=== PATIENT | female | born 2000 | race Caucasian/White ===

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

== ENCOUNTER 2019-02-15 23:35 | Inpatient (IN) ==
[2019-02-16] MEDS ORDERED: DEMEROL IV ONE (02:55)
[2019-02-16] MEDS ORDERED: ZOFRAN IV ONE (02:55)
[2019-02-16] MEDS ORDERED: DEMEROL ONE (04:15)
[2019-02-16] MEDS ORDERED: ZOFRAN ONE (04:15)
[2019-02-16 04:55] LABS: BILIRUBIN URINE SMALL (NEGATIVE); BLOOD URINE MODERATE (NEGATIVE); COLOR YELLOW; GLUCOSE URINE NEGATIVE (NEGATIVE); KETONE URINE NEGATIVE (NEGATIVE); LEUKOCYTES URINE MODERATE (NEGATIVE); NITRITE URINE NEGATIVE (NEGATIVE); PH URINE 5.5; PROTEIN URINE TRACE mg/dL (NEGATIVE); SP GRAVITY URINE 1.012; TURBIDITY URINE HAZY (CLEAR); URINE SOURCE CLEAN CATCH; UROBILINOGEN URINE NORMAL (NORMAL)
[2019-02-16 05:38] LABS: UR EPITHELIAL CELLS <10 /HPF (<10); URINE BACTERIA NEGATIVE /HPF; URINE RBC TNTC /HPF (<10)
[2019-02-16 05:38] LABS: BASO# 0.02 X1000 (0.0-0.2); BASO% 0.1 % (0.0-0.8); EOS# 0.19 X1000 (0.0-0.7); EOS% 1.4 % (0.0-10.0); HEMATOCRIT 36.1 % (37.0-47.0); HEMOGLOBIN 10.5 g/dL (12.0-16.0); IMM GRAN# 0.04 X1000 (0.0-0.04); IMM GRAN% 0.3 % (0.0-0.5); LYMPH# 2.85 X1000 (1.2-3.4); LYMPH% 20.9 % (20.5-51.1); MCH 19.4 PG (27-31); MCHC 29.1 g/dL (33-37); MCV 66.7 FL (81-99); MONO# 0.75 X1000 (0.11-0.59); MONO% 5.5 % (1.7-9.3); MPV 11.6 FL (7.4-10.4); NEUT# 9.76 X1000 (1.4-6.5); NEUT% 71.8 % (42.2-75.2); PLT 431 X1000 (130-400); RBC 5.41 XMIL (4.2-5.4); RDW 17.4 % (11.5-14.5); WBC 13.61 X1000 (4.8-10.8)
[2019-02-16 05:45] LABS: URINE CASTS NONE SEEN; URINE CRYSTALS NONE SEEN; URINE SMALL ROUND CELLS NONE SEEN; URINE YEAST NONE SEEN
[2019-02-16 06:04] LABS: AGAP 15; ALBUMIN 4.1 g/dL (3.5-5.0); ALKALINE PHOSPHATASE 231 U/L (32-104); AMYLASE 1053 U/L (20-200); BUN 7 mg/dL (8-22); CALCIUM 9.2 mg/dL (8.8-10.2); CHLORIDE 102 mmol/L (98-107); COSMO 276; CREATININE 0.7 mg/dL (0.5-0.9); GLUCOSE 110 mg/dL (70-104); GOT 212 U/L (10-30); GPT 214 U/L (10-36); LIPASE 1518 U/L (13-60); POTASSIUM 3.8 mmol/L (3.5-5.1); SODIUM 139 mmol/L (136-145); TCO2 22 mmol/L (25-35); TOTAL BILIRUBIN 2.05 mg/dL (0.20-1.00); TOTAL PROTEIN 8.2 g/dL (6.3-8.3)
--- NOTE | 2019-02-16 06:06 | Diag Imaging Result Doc PS360 ---
EXAM: CT ABD/PELVIS W/IV CONT ONLY HISTORY: colitis TECHNIQUE: CT abdomen and pelvis with intravenous contrast COMPARISON: 04/29/2018 FINDINGS: There are inflammatory changes about the pancreas. No pancreatic calcifications or pseudocyst. Possible mild fatty infiltration of the liver. No focal hepatic normality. There are tiny stones within the gallbladder. No inflammation about the gallbladder. Normal spleen, adrenal glands, and kidneys. No hydronephrosis. Normal aorta. No bowel obstruction. There is a 5.8 cm right ovarian cyst with a moderate amount of free fluid in the pelvis. Small left ovarian cyst. Normal uterus. No abscess. IMPRESSION: 1.Acute pancreatitis 2.Cholelithiasis 3.Large right ovarian cyst with free fluid in the pelvis 4.A preliminary report was given at 4:00 AM This exam was performed using automated exposure control, adjustment of mA or kV according to patient size, and/or use of iterative reconstruction technique. Electronically signed by Alberto Pelayo 02/16/2019 6:03 AM
--- NOTE | 2019-02-16 06:36 | HISTORY AND PHYSICAL ---
PRIMARY CARE PHYSICIAN: Dr. Ledezma. CHIEF COMPLAINT: Abdominal pain. HISTORY OF PRESENTING ILLNESS: A 19-year-old female without any significant past medical history had presented to emergency department with several days' history of having abdominal pain. She states it was more in the epigastric and right upper quadrant region. She was evaluated in the emergency department. She had a CT scan done which did show cholelithiasis and pancreatitis. Due to her presenting symptoms, she will require admission for further management. At the time of my examination, patient denied any headache, fever, chills, chest pain, shortness of breath, hemoptysis, melena, weight changes, but complained of abdominal pain. PAST MEDICAL HISTORY: None. PAST SURGICAL HISTORY: None. ALLERGIES: No known drug allergies. CURRENT MEDICATIONS: None. SOCIAL HISTORY: No history of smoking, alcohol or illicit drug use. FAMILY HISTORY: No history of coronary disease. REVIEW OF SYSTEMS: Fourteen point review of system is as HPI. Other systems negative. PHYSICAL EXAMINATION: GENERAL: Cooperative, friendly female. She is resting comfortably now. VITAL SIGNS: Temperature 98.1 degrees, pulse 76, respirations 15, blood pressure 128/93. HEENT: Atraumatic, normocephalic. Extraocular movements intact. PERRLA. NECK: Supple. CHEST: Clear to auscultation. CARDIOVASCULAR: Regular rate and rhythm. ABDOMEN: Soft. Right upper quadrant tenderness. EXTREMITIES: No edema. NEUROLOGIC: She is awake, alert, oriented x3. GENITOURINARY: No bladder distention. SKIN: Warm. LABORATORIES AND STUDIES: Amylase is 1053, lipase 1518. Sodium 139, potassium 3.8, chloride 102, CO2 is 22, BUN is 7, creatinine 0.7, glucose 110. WBC 13.61, hemoglobin 10.5, hematocrit 36.1, platelets 431,000. ASSESSMENT: A 19-year-old female with a history of cholelithiasis, had presented to emergency department with several days' history of having right upper quadrant pain. She was evaluated in the emergency department. She underwent imaging which was suggestive of pancreatitis. Subsequently she will require admission for further management. IMPRESSION: Gallstone pancreatitis. PLAN: 1. We will admit patient to medical floor. 2. Continue supportive treatment with IV fluids, antiemetics, pain control. 3. We will keep patient n.p.o. 4. We will consult General Surgery. 5. We will continue to follow and reassess and make further recommendations based on patient's clinical course. cc: Alejandro Monet MD
[2019-02-16] MEDS: NS 1,000 ML IV SCH ×3 (09:15→20:01)
--- NOTE | 2019-02-16 10:17 | PROGRESS NOTE ---
DATE: 02/16/2019 SUBJECTIVE: Ms. Gilbert had abdominal pain, presented with abdominal pain she said for 2 days. This is a 19-year-old without any significant past medical history. Presented to the emergency department with a several day history of having abdominal pain. She states that it was more epigastric but had some right lower quadrant or mid quadrant pain as well. Evaluated in the emergency room. CT scan showed cholelithiasis and pancreatitis. Due to presenting symptoms, required admission. She states the pain is about the same, maybe a little less. Remains afebrile. OBJECTIVE: Temperature 99.1 degrees, pulse 80, respirations 16, blood pressure 123/73. Pupils are equal and round. Lungs are clear in all lung griffith. Cardiovascular Examination: Regular rhythm and rate without murmur or S3. Weight 260 pounds, height 5 feet 5 inches. White count 13,610, hematocrit is 36, hemoglobin is 10, platelet count 431,000. Sodium 139, potassium 3.8, chloride 102, BUN 7, creatinine 0.7, calcium 9.2. AST was 212, ALT was 214, alkaline phosphatase is 231, bilirubin was 2.05, amylase 1053, lipase 1518. Urinalysis was too numerous to count red blood cells, otherwise unremarkable. CT scan, acute pancreatitis, cholelithiasis, large right ovarian cyst with free fluid in the pelvis. ASSESSMENT/PLAN: Suspect gallstone pancreatitis. Surgery will evaluate. Hold her nothing per oral and continue normal saline at 125 mL an hour. She is on pain medicines at home and she was asking for them. She was on Protonix at home as well. We are trying to hold her nothing per oral at this point. She received a dose Demerol for pain. cc: Guero Carballo MD
--- NOTE | 2019-02-16 10:17 | Diag Imaging Result Doc PS360 ---
US ABDOMEN-COMPLETE - 02/16/2019 INDICATION: abdominal pain COMPARISON: CT from earlier today FINDINGS: There is splenomegaly. The spleen measures 14.9 x 14.5 x 6.3 cm. The pancreas is largely obscured by bowel gas. There are a couple small stones in the gallbladder. These measure up to 8 mm. No gallbladder distention or wall thickening. No large fluid collections. Common bile duct measures 4 mm. The liver and both kidneys are normal. Aorta, IVC, and main portal vein are patent. IMPRESSION: Cholelithiasis. Splenomegaly. Electronically signed by Jacky Stanford 02/16/2019 10:15 AM
[2019-02-16] MEDS: ZOFRAN IV PRN ×3 (10:40→20:01)
[2019-02-16] MEDS: DILAUDID IV PRN ×3 (10:43→20:00)
--- NOTE | 2019-02-16 14:45 | CONSULTATION ---
DATE OF CONSULTATION: 02/16/2019 HISTORY OF PRESENT ILLNESS: Ms. Valarie Gilbert is a 19-year-old, overweight, white female, who has been seen in our emergency department in the past with epigastric and right upper quadrant pain. She has been diagnosed with gallstones and was told that electively she would need cholecystectomy. She presents again to our emergency department with epigastric and upper abdominal pain. Evaluation does document gallstones. CT scan suggests acute appendicitis and she has elevated lipase and amylase. We are asked to evaluate her for gallstone pancreatitis. PAST MEDICAL HISTORY: None. PAST SURGICAL HISTORY: None. ALLERGIES: No known drug allergies. MEDICATIONS: None. SOCIAL HISTORY: She does not smoke or use abuse alcohol. FAMILY HISTORY: Reviewed and was noncontributory. REVIEW OF SYSTEMS: A 14-point review of systems was reviewed and all were negative. The pertinent positives were listed in the history of present illness. PHYSICAL EXAMINATION: General: On exam, Ms. Gilbert is overweight. She is in no acute distress. She is awake, cooperative. She has no jaundice. No oral lesions. No cervical or supraclavicular lymphadenopathy. Vital Signs: Her heart rate is 88. She is afebrile. Blood pressure 123/73. She is 260 pounds, 5 feet 5 inches. Heart: Her heart has regular rate. Lungs: Lungs are clear to auscultation and percussion bilaterally. Abdomen: Her abdomen was slightly distended. It was tender in the upper abdomen. She has no scars, no evidence of hernia. I could not palpate a mass. No costovertebral tenderness. Genitalia: Rectal and vaginal exams were not performed. Extremities: She does have palpable peripheral pulses. No peripheral edema. Neurological: She is alert and oriented x3 and appropriate. X-RAYS: CT scan suggests acute pancreatitis and also small stones in the gallbladder. The gallbladder did not appear to be inflamed. Ultrasound documents small gallstones. LABS: Her white blood cell count is elevated to 13. Her lipase is 1500, amylase is 1000. IMPRESSION: Gallstone pancreatitis. PLAN: She is being admitted by our hospitalist. She will be n.p.o. with IV fluids to treat her acute pancreatitis and, as her acute pancreatitis resolves, she will need cholecystectomy. I discussed this with the patient and her family at the bedside in the emergency department. cc: Paula Bourgeois MD
[2019-02-17] MEDS: NS 1,000 ML IV SCH (03:54)
[2019-02-17] MEDS: DILAUDID IV PRN ×4 (03:54→20:19)
[2019-02-17] MEDS: ZOFRAN IV PRN ×2 (03:54→14:31)
--- NOTE | 2019-02-17 12:32 | PROGRESS NOTE ---
DATE: 02/17/2019 SUBJECTIVE: Ms. Gilbert'lance pain is about the same across left and right upper quadrant and epigastric area. OBJECTIVE: Temperature is 98.4 degrees, pulse 70, respirations 18, blood pressure 101/44. Pupils are equal round. Lungs are clear in all lung griffith. Cardiovascular: Regular rhythm and rate without murmur or S3. Abdomen is soft. Skin is warm and dry. ASSESSMENT AND PLAN: Acute pancreatitis. When her pancreatitis resolves, we need a cholecystectomy so that is the plan. We will let her have some clear liquids. She does she does appear to be hydrated well and hemodynamically stable. Abdominal ultrasound showed cholelithiasis and splenomegaly and her abdominal and pelvic CT showed acute pancreatitis, cholelithiasis. REVIEW OF CURRENT ORDERS: Continue present. We are giving her Dilaudid 0.5 mg 3 hours p.r.n. pain, and she has Zofran for nausea. cc: Guero Carballo MD MTDD
--- NOTE | 2019-02-17 15:43 | PROGRESS NOTE ---
DATE: 02/17/2019 SUBJECTIVE: Ms. Valarie Gilbert was admitted through the emergency department yesterday with gallstone pancreatitis. She has had episodes of symptomatic gallstones in the past. She continues to have upper abdominal pain today. I do feel it would be most efficient to remove her gallbladder while she is admitted this hospitalization. I feel that her acute pancreatitis has to further resolve prior to cholecystectomy. OBJECTIVE: Her heart rate is 70, blood pressure 101/44, O2 saturation 95%. She is afebrile. She is on no antibiotics. PLAN: She has been given clear liquids. We need to continue to treat her pancreatitis. I would not advance her diet at this time. We need to recheck her amylase and lipase, and as those trend towards normal, we can proceed with cholecystectomy. cc: Paula Bourgeois MD
[2019-02-18] MEDS: DILAUDID IV PRN ×4 (00:48→19:25)
--- NOTE | 2019-02-18 06:24 | GENERAL SURGERY PROGRESS NOTE ---
DATE: 02/18/2019 SUBJECTIVE: Patient says she is feeling a little bit better. She is currently sleeping in bed with another individual. OBJECTIVE: Vital Signs: Patient is currently afebrile. Her vital signs are stable. General: No acute distress. HEENT: Normocephalic, atraumatic. Pupils equal, round, reactive to light. Mucous membranes moist. Oropharynx benign. Neck: Supple. Trachea midline. Cardiovascular: Regular rate and rhythm. Lungs: Grossly clear. Abdomen: Soft, some mild discomfort, but no peritoneal signs. Extremities: Moves all extremities. Neurologic: Grossly intact. Skin: No signs of jaundice. Vascular: All extremities perfused. LABORATORY: None this morning as of yet, labs are pending. ASSESSMENT AND PLAN: A 19-year-old female with likely gallstone pancreatitis. Gallstone pancreatitis. At this time, we will follow up with morning labs. We will continue to monitor her. cc: Harman Turpin MD
[2019-02-18 07:23] LABS: AMYLASE 62 U/L (20-200); LIPASE 93 U/L (13-60)
[2019-02-18 07:33] LABS: AGAP 12; ALBUMIN 3.3 g/dL (3.5-5.0); ALKALINE PHOSPHATASE 152 U/L (32-104); BUN 4 mg/dL (8-22); CALCIUM 8.1 mg/dL (8.8-10.2); CHLORIDE 103 mmol/L (98-107); COSMO 273; CREATININE 0.5 mg/dL (0.5-0.9); ESTIMATED GFR > 60; GLUCOSE 99 mg/dL (70-104); GOT 24 U/L (10-30); GPT 81 U/L (10-36); POTASSIUM 3.3 mmol/L (3.5-5.1); SODIUM 138 mmol/L (136-145); TCO2 23 mmol/L (25-35); TOTAL BILIRUBIN 0.38 mg/dL (0.20-1.00); TOTAL PROTEIN 6.6 g/dL (6.3-8.3)
[2019-02-18 07:35] LABS: BASO# 0.02 X1000 (0.0-0.2); BASO% 0.2 % (0.0-0.8); EOS# 0.17 X1000 (0.0-0.7); EOS% 1.9 % (0.0-10.0); HEMATOCRIT 29.1 % (37.0-47.0); HEMOGLOBIN 8.5 g/dL (12.0-16.0); IMM GRAN# 0.02 X1000 (0.0-0.04); IMM GRAN% 0.2 % (0.0-0.5); LYMPH# 2.78 X1000 (1.2-3.4); LYMPH% 30.9 % (20.5-51.1); MCH 19.7 PG (27-31); MCHC 29.2 g/dL (33-37); MCV 67.5 FL (81-99); MONO# 0.45 X1000 (0.11-0.59); NEUT# 5.57 X1000 (1.4-6.5); NEUT% 61.8 % (42.2-75.2); PLT 347 X1000 (130-400); RBC 4.31 XMIL (4.2-5.4); RDW 17.4 % (11.5-14.5); WBC 9.01 X1000 (4.8-10.8)
--- NOTE | 2019-02-18 10:53 | PROGRESS NOTE ---
DATE: 02/18/2019 SUBJECTIVE: Ms. Gilbert was sleeping, resting comfortably. OBJECTIVE: Vital Signs: Temperature 97.8 degrees, pulse 74, respirations 20, blood pressure 103/44. Eyes: Pupils are equal and round. Lungs: Clear in all lung griffith. Cardiovascular exam: Regular rhythm and rate without murmur or S3. Abdomen: Soft. Skin: Skin is warm and dry. LABORATORY DATA: From this morning, white count 9010, hematocrit 29, platelet count 347,000. Sodium 138, potassium 3.3, chloride 103. BUN 4, creatinine 0.5. Blood sugar 99. Liver enzymes have come down. AST came down from 212 to 24, ALT 214 to 81, alkaline phosphatase 152. ASSESSMENT AND PLAN: 1. A 20-year-old female with likely gallstone pancreatitis. Continue to monitor. Expect she will undergo laparoscopic cholecystectomy. 2. Hemodynamically stable. She is comfortable. Review of her orders: Dilaudid p.r.n. pain and Zofran p.r.n. nausea. cc: Guero Carballo MD
[2019-02-18] MEDS: NS 1,000 ML IV SCH (15:38)
[2019-02-19] MEDS: DILAUDID IV PRN (00:31)
[2019-02-19] MEDS: NS 1,000 ML IV SCH (00:32)
--- NOTE | 2019-02-19 06:21 | GENERAL SURGERY PROGRESS NOTE ---
DATE: 02/19/2019 SUBJECTIVE: Patient feeling better. OBJECTIVE: Vital Signs: Patient is currently afebrile. Her vital signs are stable. General: No acute distress. HEENT: Normocephalic, atraumatic. Pupils equal, round, reactive to light. Mucous membranes moist. Oropharynx benign. Neck: Supple, trachea midline. Cardiovascular: Regular rate and rhythm. Lungs: Grossly clear. Abdomen: Soft. Really no tenderness. Extremities: Moves all extremities. Neurologic: Grossly intact. Skin: No signs of jaundice. Vascular: All extremities perfused. LABORATORY: Reviewed from yesterday. Labs are all trending down appropriately. ASSESSMENT AND PLAN: A 19-year-old female with biliary pancreatitis. Biliary pancreatitis. At this time, we will plan on surgical intervention. We will plan on a cholecystectomy. Discussed with her the risks, benefits, and alternatives of the procedure. Risks including, but not limited to bleeding, infection, risk of anesthesia, risk of common bile duct injury and bile leak, risk of injuring other organs. She voices understanding and wishes to proceed. We will make her NPO and try to do this procedure today. cc: Harman Turpin MD
[2019-02-19] MEDS ORDERED: SENSORCAINE 0.5%-EPI 1:200,000 ONE ×2 (06:57→06:58)
[2019-02-19] MEDS ORDERED: LR 1,000 ML ONE ×2 (06:57→06:58)
[2019-02-19] MEDS ORDERED: SODIUM CHLORIDE 0.9% ONE ×2 (06:57→06:58)
[2019-02-19 07:07] LABS: AGAP 14; ALB/GLOB RATIO 1.2; ALBUMIN 3.4 g/dL (3.5-5.0); ALKALINE PHOSPHATASE 142 U/L (32-104); BUN 3 mg/dL (8-22); CALCIUM 8.8 mg/dL (8.8-10.2); CHLORIDE 105 mmol/L (98-107); COSMO 274; CREATININE 0.5 mg/dL (0.5-0.9); ESTIMATED GFR > 60; GLUCOSE 102 mg/dL (70-104); GOT 23 U/L (10-30); GPT 63 U/L (10-36); MAGNESIUM 1.8 mg/dL (1.5-2.7); POTASSIUM 3.8 mmol/L (3.5-5.1); SODIUM 139 mmol/L (136-145); TCO2 20 mmol/L (25-35); TOTAL BILIRUBIN 0.33 mg/dL (0.20-1.00); TOTAL PROTEIN 6.2 g/dL (6.3-8.3)
[2019-02-19] MEDS ORDERED: XYLOCAINE-MPF 2% ONE (08:20)
[2019-02-19] MEDS ORDERED: DIPRIVAN 1% ONE (08:21)
[2019-02-19] MEDS ORDERED: VERSED ONE (08:21)
[2019-02-19] MEDS ORDERED: MEFOXIN 2 GM/NS 2 GM/50 ML IVPB IV ONE (09:00)
[2019-02-19] MEDS ORDERED: FENTANYL ONE (09:03)
[2019-02-19] MEDS ORDERED: PEPCID ONE (09:10)
[2019-02-19] MEDS ORDERED: REGLAN ONE (09:10)
--- NOTE | 2019-02-19 09:34 | PROGRESS NOTE ---
DATE: 02/19/2019 SUBJECTIVE: Ms. Gilbert reports she is feeling better. She remains afebrile. She was going to the bathroom and ambulating fine. OBJECTIVE: Temperature 97.8 degrees, pulse 64, respirations 18, blood pressure 111/53. Pupils are equal and round. Lungs are clear in all lung griffith. Cardiovascular Examination: Regular rhythm and rate without murmur or S3. Abdomen is soft. Skin is warm and dry. ASSESSMENT AND PLAN: Biliary pancreatitis. Plan on surgical invention, cholecystectomy. I think they were talking about doing one today with Dr. Turpin and possibly could go home tomorrow. cc: Guero Carballo MD
[2019-02-19] MEDS ORDERED: ZOFRAN ONE (09:49)
[2019-02-19] MEDS ORDERED: DECADRON ONE (09:49)
[2019-02-19] MEDS ORDERED: NEOSTIGMINE ONE (09:49)
[2019-02-19] MEDS ORDERED: ROBINUL ONE (09:49)
[2019-02-19] MEDS ORDERED: MORPHINE ONE ×2 (10:18→10:31)
[2019-02-19 11:00] VITALS: BP 137/63
--- NOTE | 2019-02-19 11:50 | OPERATIVE NOTE ---
PROCEDURE DATE: 02/19/2019 PREOPERATIVE DIAGNOSIS: Biliary pancreatitis. POSTOPERATIVE DIAGNOSIS: Biliary pancreatitis. PROCEDURE PERFORMED: Laparoscopic cholecystectomy. SURGEON: Harman Turpin M.D. MILK INSPECTOR: None. ANESTHESIA: General endotracheal. INTRAOPERATIVE FINDINGS: Small cystic duct, not amenable to cholangiogram. COMPLICATIONS: None at the time of this dictation. ESTIMATED BLOOD LOSS: 5 mL. SPECIMENS REMOVED: Gallbladder. BRIEF HISTORY: A 19-year-old female presenting with biliary pancreatitis, felt that she would benefit from a laparoscopic cholecystectomy once she clinically improved from her pancreatitis. She did. We discussed with her, the risks, benefits, and alternatives of the procedure, risks including, but not limited to bleeding, infection, risk of anesthesia, risk of common bile duct injury, and bile leak. All questions were answered. She wanted to proceed. DESCRIPTION OF PROCEDURE: After informed consent was obtained, the patient was brought to the operative theatre, transferred to the operating table, placed in the supine position. General endotracheal anesthesia was then performed without complication. A formal time- out was then performed confirming the patient, date, and procedure. All were in agreement. At that time, attention was given to the abdomen. An infraumbilical incision was made, through which using the Optiview technique, we inserted an 11 mm trocar, connected insufflation, pneumoperitoneum was achieved. Under direct visualization, we placed 3 more trocars, all 5 mm, one in subxiphoid, two in the right upper quadrant. Using these, the gallbladder was identified and was retracted cephalad. We dissected out the cystic duct and cystic artery to achieve the critical view of safety. The cystic duct was very small and not amenable to a cholangiogram catheter being inserted into it. We doubly clipped and ligated it and the artery. We then dissected the gallbladder off the gallbladder fossa. To facilitate removal, we did place it into an endobag, and brought it out through the infraumbilical incision, which had to be enlarged to accommodate the size of the gallbladder. Once we had done this, we reexamined the abdomen. There was no drainage of bile. The clips were in good position. No active bleeding. We closed the infraumbilical incision with 0 Vicryl on a Arnold-Joelle device, removed all trocars, disconnected insufflation, and pneumoperitoneum was released. All skin incisions were closed with 4-0 Monocryl. The patient tolerated the procedure well. From a surgical point of view, she can probably be discharged home today. cc: MD JULIA Brewer
[2019-02-19] MEDS: NORCO-5 PO PRN ×2 (12:19→15:01)
== END 2019-02-19 15:20 | disposition home or self-care (01) | DRG 418 ==
LOC: ED 23:35 → SUATTDRO 02-16 07:04 → EDIPHOLD 02-16 07:04 → 4N 02-16 15:14
PROVIDERS: ATTEND Emergency Medicine